=== PATIENT | female | born 1965 | race Caucasian/White ===

== ENCOUNTER 2020-12-17 16:33 | Emergency (ER) | payer OTHER, SELFPAY ==
--- NOTE | ~2020-12-17 | XR_ITS ---
EXAMINATION: XR chest 1V portable EXAM DATE: 12/17/2020 17:08 INDICATION: Patient 8 tabs of 20 milligrams of Lexapro. TECHNIQUE: Portable AP frontal chest x-ray was obtained. There is no prior study for comparison. FINDINGS: 2 cardiac monitoring leads and a right humeral rotator cuff repair anchor. No other radiopa que foreign bodies. The lungs are clear. There are no pleural effusions. The cardiomediastinal silh ouette is within normal limits. There is no pneumothorax suspected. The bones and soft tissues are unremarkable. IMPRESSION: No acute cardiopulmonary findings. Reviewed, dictated and finalized at location A.
[2020-12-17 16:39] VITALS: BP 111/75; PULSE 88; RESP 18; TEMP 37; O2SAT 96
--- NOTE | 2020-12-17 16:56 | ECG_ITS ---
Measurements Intervals [place] Rate: 87 P: 23 MO: 155 QRS: -7 QRSD: 84 T: 20 QT: 356 QTc: 429 Interpretive Statements SINUS RHYTHM LOW QRS VOLTAGE IN PRECORDIAL LEADS BORDERLINE R WAVE PROGRESSION, ANTERIOR LEADS BORDERLINE T WAVE ABNORMALITY- INFERIOR LEADS BASELINE ARTIFACT- I, II, III, AVF BORDERLINE ECG Electronically Signed On 12-18-2020 7:29:39 CDT by Lloyd Cervantes D.O.
--- NOTE | 2020-12-17 17:00 | PC.NURSE ---
Poison Control contacted and will fax information to us.
[2020-12-17 17:10] LABS: Basophils Percent Auto 0.5 % (0.2-1.2); Eosinophils Absolute Auto 0.4 K/mm3 (0-0.3); Hematocrit 41.6 % (37.0-47.0); Hemoglobin 13.7 g/dL (12.0-15.0); Immature Granulocyte Absolute 0.03 K/mm3 (0.00-0.031); Immature Granulocyte Percent A 0.4 % (0-0.5); Lymphocytes Absolute Auto 2.53 K/mm3 (0.9-3.2); Mean Corpuscular HGB Conc 32.9 g/dl (32-36); Mean Corpuscular Hemoglobin 27.7 pg (26-34); Mean Platelet Volume 9.3 fl (7.4-10.4); Monocytes Absolute Auto 0.6 K/mm3 (0.1-0.6); Monocytes Percent Auto 8.6 % (2.6-8.5); Neutrophils Absolute Auto 3.8 K/mm3 (1.3-6.7); Neutrophils Percent Auto 51.5 % (45.5-73.1); Platelet Count Result 255 k/mm3 (150-375); Red Blood Count 4.95 M/mm3 (4.2-5.4); Red Cell Distribution Width 14.2 % (11.5-14.5); White Blood Count 7.4 K/mm3 (4.5-10.0)
[2020-12-17] MEDS: CHARCOAL ACTIVATED LIQUID 50 GM/240 ML BOTTLE PO (17:16)
[2020-12-17] MEDS: SODIUM CHLORIDE 0.9% IV 1,000 ML 999 ML IV CONT (17:17)
[2020-12-17 17:19] VITALS: BP 116/84; PULSE 94; RESP 15; RESP 21; TEMP 36.6; O2SAT 97
[2020-12-17 17:21] LABS: Alanine Aminotransferase 26 U/L (4-35); Albumin Level 4.1 g/dL (3.5-5.1); Alkaline Phosphatase 89 U/L (38-126); Anion Gap 6 mmol/L (8-16); Aspartate Amino Transferase 34 U/L (14-36); Bilirubin,Total 0.5 mg/dL (0.2-1.3); Blood Urea Nitrogen 21 mg/dL (7-17); Calcium 8.8 mg/dL (8.4-10.2); Carbon Dioxide 25 mmol/L (22-30); Chloride 108 mmol/L (98-107); Creatine Kinase 144 U/L (30-135); Estimated CRCL calculation 68 ml/min; Estimated Glomerular Filt Rate > 60; Glucose 87 mg/dL (65-105); Magnesium 1.7 mg/dL (1.6-2.3); Phosphorus 4.3 mg/dL (2.5-4.5); Sodium 139 mmol/L (137-145)
--- NOTE | 2020-12-17 17:28 | ED.OVERDOSE ---
HPI - Overdose General Chief Complaint: Overdose Stated Complaint: accidental ingestion Time Seen by Provider: 12/17/20 16:53 Source: patient, family and RN notes reviewed Mode of arrival: ambulatory Limitations: no limitations History of Present Illness HPI Narrative: Patient is 55 years old white female presents with accidental intake of 8 tablets of Lexapro, 20 mg each, 45 minutes prior to arrival. Patient denies any suicidal or homicidal ideation, was preparing for a trip and was so busy and accidentally took 8 pills of Lexapro or in 1 hand followed by drinking tea. Few minutes later patient realized that what she did was wrong and and called poison control who advised her to come to us. Patient denies any fever, chills, nausea, vomiting, abdominal pain, back pain, chest pain, shortness of breath. Related Data Home Medications Medication Instructions Recorded Confirmed epinephrine 12/17/20 escitalopram oxalate [Lexapro] 20 mg PO DAILY 12/17/20 ustekinumab [Stelara] SUBCUT 12/17/20 Allergies Allergy/AdvReac Type Severity Reaction Status Date / Time codeine Allergy Mild Vomiting Verified 12/17/20 16:58 Review of Systems Review of Systems: Narrative: CONSTITUTIONAL: Denies fever, chills, or sweats. EYES: Denies visual changes, redness, or discharge. ENT: Denies rhinorrhea, congestion, sore throat, or otalgia. CARDIOVASCULAR: Denies chest pain, palpitations, or edema. RESPIRATORY: Denies cough or dyspnea. GASTROINTESTINAL: Denies abdominal pain, nausea, vomiting, or diarrhea. GENITOURINARY: Denies dysuria or hematuria. SKIN: Denies rash or itching. MUSCULOSKELETAL: Denies back pain, joint pain, or myalgia. NEUROLOGIC: Denies headache, numbness, or weakness. PSYCHIATRIC: Denies anxiety or depression. PMFSH Social History Social History Substance use type: does not use Exam Narrative: Exam Narrative: General appearance: Well-developed, well-nourished Skin: Normal color Head: Normocephalic, nontraumatic Eyes: Clear conjunctiva ENT: Oropharynx normal, ears normal, nose normal Neck: Supple, nontender Chest and respiratory: Airway patent, no respiratory distress, no accessory muscle use Heart: Regular rate/rhythm Abdomen: Soft, nontender, no organomegaly, quiet bowel sounds Vascular: Normal peripheral pulses, normal capillary refill. Musculoskeletal: Normal range of motion, nontender back Neurologic: Alert and oriented ?3, [employer] COORD[employer]ATOR is normal as tested, no gross motor deficit Course Course Emergency Course: Stable Reevaluation(s) Reevaluation #1: Initially patient declined to take charcoal or stay for evaluation and would like to go home immediately because she cannot miss her flight. After extended long explanation about the consequences of Lexapro overdose. Patient agreed to take the charcoal. Patient declined to be hospitalized and would like to go home. Currently patient is asymptomatic Date: 12/17/20 Time: 19:56 Vital Signs Vital signs: Vital Signs Temperature 37.0 C 12/17/20 16:39 Pulse Rate 88 12/17/20 16:39 Respiratory Rate 18 12/17/20 16:39 Blood Pressure 111/75 12/17/20 16:39 Pulse Oximetry 96 12/17/20 16:39 Temperature 36.6 C 12/17/20 17:19 Pulse Rate 94 12/17/20 17:19 Respiratory Rate 21 H 12/17/20 17:19 Blood Pressure 116/84 12/17/20 17:19 Pulse Oximetry 97 12/17/20 17:19 MDM - Overdose MDM Narrative Medical decision making narrative: Patient accidentally took 8 tablets of Lexapro, 20 mg each, according to poison control protocol to start patient on 50 g of charcoal within 1 hour of the intake, observe the patient for 15 hours
[2020-12-17 17:48] LABS: Add Urine Microscopic? YES; Appearance Urine Cloudy (Clear); Bacteria Urine 1+ /hpf; Bilirubin Urine Negative (Negative); Blood Urine 1+ (Negative); Color Urine Yellow (Yellow); Glucose Urine UA Negative (Negative); Ketones Urine Negative (Negative); Leukocyte Esterase Ur 3+ LEU/UL (Negative); Mucus Urine Rare /lpf; Nitrate Urine Negative (Negative); Protein Urine Negative (Negative); Specific Grav Ur 1.012 (1.001-1.035); Squamous Epithelial Cell Urine Few /hpf (Few); Urobilinogen Urine Negative mg/dL (<2.0); WBC Urine >75 /hpf
[2020-12-17 18:14] VITALS: BP 106/66; PULSE 95; RESP 26; TEMP 36.8; O2SAT 97
[2020-12-17 18:31] VITALS: BP 104/60; PULSE 98; RESP 23; TEMP 36.5; O2SAT 97
== END 2020-12-17 19:09 | disposition left against medical advice (07) ==
PROVIDERS: Emergency Provider Emergency Medicine; PCP Internal Medicine
DX: T43.221A Poisoning by selective serotonin reuptake inhibitors, accidental (unintentional), initial encounter (principal)
CPT/HCPCS: 36415; 71045; 80053; 81001; 82550; 83735; 84100; 85025; 87077; 87086; 87088; 93005; 96360; 96361; 99283; 99284; J7030